=== PATIENT | female | born 1965 | race Caucasian/White ===

== ENCOUNTER 2023-08-22 08:00 | Emergency (ER) | payer BC, SELFPAY ==
[2023-08-22 08:21] VITALS: BP 142/91; PULSE 89; RESP 16; TEMP 36.5; O2SAT 100
[2023-08-22 08:23] VITALS: BP 142/91; PULSE 89; RESP 16; TEMP 36.5; O2SAT 100
--- NOTE | 2023-08-22 08:37 | ED.LOWEXIN ---
HPI - Extremity Injury (Lower) General Chief Complaint: Extremity Injury, Lower Stated Complaint: lt knee injury/work related Time Seen by Provider: 08/22/23 08:30 Source: patient and RN notes reviewed Mode of arrival: ambulatory Limitations: no limitations History of Present Illness HPI Narrative: 68-year-old female presents she reports an old injury many years ago but she has not had much issues with. Reports about a month ago was walking up stairs when she had a pop in her knee that caused her to fall to the ground, she reports she iced it and rested and it got better. She reports same thing happened a few days ago she pain, popping sensation, feeling of instability. Using ibuprofen, Thomas oil, copper sleeve without much relief. MD complaint: knee injury Related Data Home Medications Medication Instructions Recorded Confirmed baclofen 5 mg tablet 5 mg PO DAILY 08/22/23 08/22/23 bupropion HCl 100 mg tablet 100 mg PO BID 08/22/23 08/22/23 estradiol 08/22/23 hydroxychloroquine 200 mg tablet 200 mg PO BID 08/22/23 08/22/23 (Plaquenil) Allergies Allergy/AdvReac Type Severity Reaction Status Date / Time Sulfa (Sulfonamide Allergy Hives Verified 08/22/23 08:21 Antibiotics) Review of Systems Review of Systems: CONSTITUTIONAL: Denies malaise, chills, sweats, or fever. SKIN: Denies rash or itching, open skin, laceration, abrasion, redness, warmth MUSCULOSKELETAL: Reports left knee pain, swelling, popping NEUROLOGIC: Denies numbness, weakness All systems reviewed & are unremarkable except as noted in HPI and below PMFSH Comments At time of signature, agree with nursing past medical, surgical, social and family history. There is no relevant family history pertinent to the presenting complaint Exam Narrative: GENERAL: Well-appearing, well-nourished, and in no acute distress. HEAD: Normocephalic, atraumatic. EYES: PERRLA, conjunctivae clear NECK: Supple. CHEST: Speaks in full sentences. No respiratory distress. HEART: Regular rate and rhythm. Normal and equal peripheral pulses. EXTREMITIES: Left knee has normal sensation, limited range of motion. Mild anterior edema, no erythema, warmth, ecchymosis. Normal sensation with sensitivity to light touch and pain. And anterior tenderness. No open wounds, no skin tenting, no devitalized tissue or atrophy, no trophic changes, no obvious deformity, alignment normal, nearby joints and structures intact. Distal pulses palpable and equal bilaterally, skin warm, dry, pink. Lever test negative. Capillary refill less than 3 seconds. SKIN: Warm, dry, no rash. NEURO: Alert and oriented x3. PSYCH: Normal mood and affect Course Course Emergency Course: Patient is aware of diagnosis, understands and agrees to treatment plan. Anticipatory guidance given. Patient agrees to follow-up as directed and is aware of reasons to seek care at the emergency department. Portions of this record may have been created with voice recognition software Level of Care: Express Care Visit Vital Signs Vital signs: Vital Signs Temperature 97.7 F 08/22/23 08:21 Pulse Rate 89 08/22/23 08:21 Respiratory Rate 16 08/22/23 08:21 Blood Pressure 142/91 H 08/22/23 08:21 Pulse Oximetry 100 08/22/23 08:21 Oxygen Delivery Room Air 08/22/23 08:21 Temperature 97.7 F 08/22/23 08:23 Pulse Rate 89 08/22/23 08:23 Respiratory Rate 16 08/22/23 08:23 Blood Pressure 142/91 H 08/22/23 08:23 Pulse Oximetry 100 08/22/23 08:23 Oxygen Delivery Room Air 08/22/23 08:23 Reviewed. MDM - Extremity Injury (Lower) MDM Narrative Medical decision making narrative: Patients injury and pain is consistent with musculoskeletal etiology. No signs of neurological or vascular compromise on exam. Compartments and tissues are soft without signs of compartment syndrome. Pain is felt appropriate for further evaluation on an outpatient basis. Critical Care Time Critical Care Ti
== END 2023-08-22 08:43 | disposition home or self-care (01) ==
PROVIDERS: Emergency Provider Nurse Practitioner
DX: M25.562 Pain in left knee (principal)
CPT/HCPCS: 99202; G0463

== ENCOUNTER 2023-09-10 08:25 | Emergency (ER) | payer BC, SELFPAY ==
[2023-09-10 08:37] VITALS: BP 142/91; PULSE 71; RESP 18; TEMP 36.1; O2SAT 100
--- NOTE | 2023-09-10 08:37 | ED.FEMALEGU ---
HPI - Female Genitourinary General Chief complaint: Urogenital-Female Stated complaint: uti symptoms Time Seen by Provider: 09/10/23 08:37 Source: patient Mode of arrival: ambulatory Limitations: no limitations History of Present Illness HPI Narrative: 58 yo F presents with c/o urinary frequency, bladder pressure when urinating for the past 3 to 4 wks. hx of hysterectomy and bladder sling. Concerned bladder may be dropping again . Reports new partner and recently started having intercourse again. Complaining of pain and full feeling with intercourse. Does not have a gynocologist and states inbetween PCP right now. Came to [facility] today to rule out UTI. Bowel movements. Denies nausea. All systems reviewed and negative except as noted above. Related Data Home Medications Medication Instructions Recorded Confirmed estradiol 08/22/23 08/23/23 hydroxychloroquine 200 mg tablet 200 mg PO BID 08/22/23 08/23/23 (Plaquenil) baclofen 5 mg tablet 10 mg PO DAILY 09/03/23 bupropion HCl 300 mg 24 hr tablet, 300 mg PO QAM 09/03/23 extended release (Wellbutrin XL) Allergies Allergy/AdvReac Type Severity Reaction Status Date / Time Sulfa (Sulfonamide Allergy Hives Verified 09/10/23 08:41 Antibiotics) Review of Systems Review of Systems: CONSTITUTIONAL: Denies fever, chills, or sweats. EYES: Denies visual changes, redness, or discharge. ENT: Denies rhinorrhea, congestion, sore throat, or otalgia. CARDIOVASCULAR: Denies chest pain, palpitations, or edema. RESPIRATORY: Denies cough or dyspnea. GASTROINTESTINAL: Denies abdominal pain, nausea, vomiting, or diarrhea. GENITOURINARY: Reports frequency, bladder pressure with urination. Denies hematuria. reports painful intercourse. SKIN: Denies rash or itching. MUSCULOSKELETAL: Denies back pain, joint pain, or myalgia. NEUROLOGIC: Denies headache, numbness, or weakness. PSYCHIATRIC: Denies anxiety or depression. All other systems reviewed are negative, except as documented in HPI. [facility] Past Medical History Medical History (Updated 09/10/23 @ 09:02 by Chaparrita Byrnes NP) Lupus (systemic lupus erythematosus) Surgical History Surgical History (Updated 09/03/23 @ 08:50 by Agata Garcia CMA) H/O: hysterectomy Hx of arthroscopy of left knee ~2013 Family History Family History (Updated 09/03/23 @ 08:50 by Agata Garcia CMA) Unknown Arthritis Social History Social History (Updated 09/03/23 @ 08:51 by Agata Garcia CMA) Social History: caffeine use Smoking status: Never smoker Alcohol intake: never Substance use type: does not use Living arrangements: with family Occupation/Education: occupation 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 There is no relevant family history pertinent to the presenting complaint. Exam Narrative: GENERAL: This is a well-nourished, well-developed patient, in no apparent distress. HEAD: normocephalic, atraumatic. EYES: PERRL. Sclera clear/white. Vision is grossly intact. EARS: External ears normal NOSE: External nose normal NECK: Neck supple, non-tender without lymphadenopathy, masses or thyromegaly. CARDIOVASCULAR: Regular rate and rhythm without murmurs, gallops, or rubs. RESPIRATORY: Clear to auscultation. Breath sounds equal bilaterally. No wheezes, rales, or rhonchi. GASTROINTESTINAL: Abdomen soft, non-tender, nondistended. Bowel sounds are active. No hepato-splenomegaly, or palpable masses. No guarding. SKIN: warm, Dry, intact with no suspicious lesions or rash, good texture and turgor. NEURO: awake, alert, and oriented to person, place and time. There were no obvious focal neurologic abnormalities. EXTREMITIES: No joint tenderness, effusion, or edema noted. GENITOURINARY: pelvic exam
== END 2023-09-10 09:08 | disposition home or self-care (01) ==
PROVIDERS: Emergency Provider Nurse Practitioner Family
DX: R35.0 Frequency of micturition (principal); N94.10 Unspecified dyspareunia; Z76.0 Encounter for issue of repeat prescription; M32.9 Systemic lupus erythematosus, unspecified
CPT/HCPCS: 81003; 99213; G0463

== ENCOUNTER 2023-09-10 09:24 | Emergency (ER) | payer BC, SELFPAY ==
--- NOTE | ~2023-09-10 | CT_ITS ---
EXAMINATION: CT abdomen pelvis w con DATE: 09/10/2023 11:08 INDICATION: Suprapubic tenderness TECHNIQUE: Computed tomography (CT) of the abdomen and pelvis was performed with 100 cc Omnipaque 350 intravenous contrast. The dose-length product was 843.68 mGy-cm. Automated exposure control and iter ative reconstruction technique were employed. COMPARISON: None. FINDINGS: Lung bases are unremarkable. Heart size normal. No significant pleural or pericardial effus ion. There is a duodenal diverticulum. Colonic diverticulosis without evidence for diverticulitis. Fa tty infiltration of the liver. Gallbladder is present. The spleen, pancreas, adrenal glands and kidne ys are unremarkable. No significant vascular abnormality. No lymphadenopathy. No free air or free flu id. No evidence for hernia. No abnormal pelvic masses or fluid collections. No focal lytic or blastic lesions. Mild lumbar spondylosis. There is evidence of pelvic relaxation. IMPRESSION: 1. No acute abdominal abnormality. 2: Pelvic relaxation. Reviewed, dictated and finalized at location B.
[2023-09-10 09:42] VITALS: BP 131/99; PULSE 71; RESP 16; TEMP 36.7
--- NOTE | 2023-09-10 09:49 | ED.FEMALEGU ---
HPI - Female Genitourinary General Chief complaint: Urogenital-Female Stated complaint: bladder pain Time Seen by Provider: 09/10/23 09:39 Source: patient Mode of arrival: ambulatory Limitations: no limitations History of Present Illness HPI Narrative: This is a 58-year-old female with PMH of SLE, DJD who presents to the ED with chief complaint of bladder pain for the past couple of weeks. Reports that she 1st noticed this after she had sexual intercourse for the first time in a long time. she reports pain to the suprapubic area that seems to be the worst after intercourse and with a full bladder. reports some episodes of urge incontinence but this is not abnormal for her. States that she went to urgent care this morning and had a negative UA so she was sent here for further evaluation. Reports surgical history hysterectomy many years ago. She also reports she had a bladder sling placed around that time. Denies dysuria, urinary frequency, vaginal bleeding, hematuria, vaginal pain, rash, flank pain, back pain, fevers, chills. Related Data Home Medications Medication Instructions Recorded Confirmed estradiol 08/22/23 08/23/23 hydroxychloroquine 200 mg tablet 200 mg PO BID 08/22/23 08/23/23 (Plaquenil) baclofen 5 mg tablet 10 mg PO DAILY 09/03/23 bupropion HCl 300 mg 24 hr tablet, 300 mg PO QAM 09/03/23 extended release (Wellbutrin XL) Allergies Allergy/AdvReac Type Severity Reaction Status Date / Time Sulfa (Sulfonamide Allergy Hives Verified 09/10/23 08:41 Antibiotics) Review of Systems Review of Systems: All systems as dictated in [facility] Past Medical History Medical History (Updated 09/10/23 @ 12:07 by Raghav Gallo PA-C) Lupus (systemic lupus erythematosus) Surgical History Surgical History (Updated 09/03/23 @ 08:50 by Agata Garcia CMA) H/O: hysterectomy Hx of arthroscopy of left knee ~2013 Family History Family History (Updated 09/03/23 @ 08:50 by Agata Garcia CMA) Unknown Arthritis Social History Social History (Updated 09/03/23 @ 08:51 by Agata Garcia CMA) Social History: caffeine use Smoking status: Never smoker Alcohol intake: never Substance use type: does not use Living arrangements: with family Occupation/Education: occupation 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 HEAD: Normocephalic, atraumatic. EYES: PERRLA and EOMI. ENT: Nares clear, no rhinorrhea or epistaxis. Mucous membranes moist. Oropharynx without tonsillar hypertrophy exudate or other lesions. NECK: Supple. No adenopathy or masses. CHEST: No respiratory distress. Clear to auscultation. No wheezes rales or rhonchi HEART: Regular rate and rhythm. No murmur heard. Normal peripheral pulses. ABDOMEN: Moderately tender suprapubic region. Otherwise nontender. Soft, nondistended, normal active bowel sounds. Negative flank tenderness bilaterally MSK: Normal range of motion. No edema. SKIN: Warm, dry, no rash. NEURO: Alert and oriented x3. No focal deficits. PSYCH: Normal mood and affect. Course Vital Signs Vital signs: Vital Signs Temperature 98.0 F 09/10/23 09:42 Pulse Rate 71 09/10/23 09:42 Respiratory Rate 16 09/10/23 09:42 Blood Pressure 131/99 H 09/10/23 09:42 Oxygen Delivery Room Air 09/10/23 09:42 Temperature 98.3 F 09/10/23 12:00 Pulse Rate 76 09/10/23 12:00 Respiratory Rate 16 09/10/23 12:00 Blood Pressure 138/74 09/10/23 12:00 Pulse Oximetry 98 09/10/23 12:00 Oxygen Delivery Room Air 09/10/23 09:42 MDM - Female Genitourinary MDM Narrative Medical decision making narrative: This is a 58-year-old female who presents to the ED with chief complaint of suprapubic pain. Vitals are normal. Exam shows suprapubic te
[2023-09-10 09:57] LABS: Basophils Absolute Auto 0.1 K/mm3 (0.0-0.1); Basophils Percent Auto 1.3 % (0.2-1.2); Eosinophils Absolute Auto 0.4 K/mm3 (0-0.3); Eosinophils Percent Auto 7.2 % (0-4.4); Hemoglobin 13.8 g/dL (12.0-15.0); Immature Granulocyte Absolute 0.03 K/mm3 (0.00-0.031); Immature Granulocyte Percent A 0.5 % (0-0.5); Lymphocytes Absolute Auto 1.37 K/mm3 (0.9-3.2); Lymphocytes Percent Auto 24.5 % (18.3-44.2); Mean Corpuscular HGB Conc 32.9 g/dl (32-36); Mean Corpuscular Hemoglobin 29.8 pg (26-34); Mean Corpuscular Volume 90.7 fl (80-100); Mean Platelet Volume 9.6 fl (7.4-10.4); Monocytes Absolute Auto 0.3 K/mm3 (0.1-0.6); Monocytes Percent Auto 6.1 % (2.6-8.5); Neutrophils Absolute Auto 3.4 K/mm3 (1.3-6.7); Neutrophils Percent Auto 60.4 % (45.5-73.1); Platelet Count Result 235 k/mm3 (150-375); Red Blood Count 4.63 M/mm3 (4.2-5.4); Red Cell Distribution Width 13.3 % (11.5-14.5); White Blood Count 5.6 K/mm3 (4.5-10.0)
[2023-09-10 10:07] LABS: Alanine Aminotransferase 20 U/L (6-35); Albumin Level 4.7 g/dL (3.5-5.1); Alkaline Phosphatase 102 U/L (38-126); Anion Gap 5 mmol/L (8-16); Aspartate Amino Transferase 24 U/L (14-36); Blood Urea Nitrogen 11 mg/dL (7-17); Calcium 9.7 mg/dL (8.4-10.2); Carbon Dioxide 28 mmol/L (22-30); Chloride 106 mmol/L (98-107); Estimated CRCL calculation 76 ml/min; Estimated Glomerular Filt Rate > 60; Glucose 93 mg/dL (65-110); Potassium 3.9 mmol/L (3.4-5.0); Sodium 139 mmol/L (137-145)
[2023-09-10 10:31] VITALS: BP 143/98; PULSE 72; RESP 16; TEMP 36.8; O2SAT 100
[2023-09-10 11:08] VITALS: BP 140/88; PULSE 74; RESP 16; O2SAT 99
[2023-09-10 12:00] VITALS: BP 138/74; PULSE 76; RESP 16; TEMP 36.8; O2SAT 98
[2023-09-10 12:02] LABS: Add Urine Microscopic? NO; Appearance Urine Clear (Clear); Bilirubin Urine Negative (Negative); Blood Urine Negative (Negative); Color Urine Yellow (Yellow); Glucose Urine UA Negative (Negative); Ketones Urine Negative (Negative); Leukocyte Esterase Ur Negative LEU/UL (Negative); Nitrate Urine Negative (Negative); Protein Urine Negative (Negative); Specific Grav Ur <= 1.005 (1.001-1.035); Urobilinogen Urine 0.2 mg/dL (<2.0); pH Urine 6.5 (5.0-9.0)
== END 2023-09-10 12:20 | disposition home or self-care (01) ==
PROVIDERS: Emergency Provider Physician Assistant; Referring Provider Family Medicine
DX: R10.30 Lower abdominal pain, unspecified (principal); M32.9 Systemic lupus erythematosus, unspecified; Z90.710 Acquired absence of both cervix and uterus
CPT/HCPCS: 36415; 74177; 80053; 81003; 85025; 99284; Q9967

== ENCOUNTER 2024-01-25 13:36 | Emergency (ER) | payer SELFPAY ==
[2024-01-25] VITALS (9 sets, daily range): BP systolic 129–144; BP diastolic 88–93; PULSE 73–85; RESP 12–20; TEMP 36.4; O2SAT 94–100
--- NOTE | ~2024-01-25 | XR_ITS ---
Clinical Indication: Chest pain PA and lateral views of the chest: Comparison: None Findings: The lungs are clear, without evidence of focal consolidation or pleural effusion. Cardiome diastinal silhouette is within normal limits. Bones and soft tissues are unremarkable. Impression: Normal chest. Reviewed, dictated and finalized at location . Impression: Normal chest.
--- NOTE | 2024-01-25 13:38 | ECG_ITS ---
Test Date: 2024-01-25 13:47:34 Measurements Intervals [place] Rate: 83 P: 29 MA: 136 QRS: 17 QRSD: 81 T: 30 QT: 369 QTc: 434 Interpretive Statements SINUS RHYTHM NORMAL ELECTROCARDIOGRAM No previous ECG available for comparison Electronically Signed On 01-25-2024 15:08:16 CDT by Nabor Duarte M.D.
--- NOTE | 2024-01-25 14:11 | ED.CHESTPAIN ---
HPI - Chest Pain General Chief Complaint: Chest Pain Stated Complaint: chest pain Time Seen by Provider: 01/25/24 13:59 History of Present Illness HPI narrative: This is a 58-year-old female with a past medical history significant for lupus. Today patient presents to the ED with a chief complaint of chest pain she describes as crushing sensation. She states she has been down with intermittent crushing chest pain for last few weeks. It is associated with some difficulty in breathing she describes as a pain which takes deep breath. Pain is sporadic and comes and goes but she knows that has been worsening lately and worse with movement. Denies any trauma, recent illnesses or injuries. Denies any fever, chills, cough, back pain, abdominal pain, leg swelling or blood clot history. Was otherwise in her normal state of health. She knows that while she was at work today she had the chest heaviness in her chest as well as feeling like her heart was racing prompting her to seek evaluation. No history of coronary disease to her knowledge. No new medications or changes. She states she has tried taking Nexium at home with suspected GERD but has not had any improvement. Related Data Home Medications Medication Instructions Recorded Confirmed estradiol 08/22/23 08/23/23 hydroxychloroquine 200 mg tablet 200 mg PO BID 08/22/23 08/23/23 (Plaquenil) baclofen 5 mg tablet 10 mg PO DAILY 09/03/23 bupropion HCl 300 mg 24 hr tablet, 300 mg PO QAM 09/03/23 extended release (Wellbutrin XL) Allergies Allergy/AdvReac Type Severity Reaction Status Date / Time Sulfa (Sulfonamide Allergy Hives Verified 01/25/24 13:37 Antibiotics) Review of Systems Review of Systems: As reviewed 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 Mucous membranes moist. NECK: Supple. CHEST: [Clear to auscultation. No respiratory distress.] HEART: [Regular rate and rhythm]. No murmur heard. [Normal peripheral pulses.] ABDOMEN: [Soft, nondistended], [nontender], [No rigidity or guarding] EXTREMITIES: Normal range of motion. [No edema.] SKIN: Warm, dry, no rash. NEURO: [No focal deficits]. Alert and oriented [x3.] PSYCH: [Normal mood and affect.] Course Vital Signs Vital signs: Vital Signs Pulse Oximetry 98 01/25/24 13:38 Oxygen Delivery Room Air 01/25/24 13:38 Temperature 36.4 C 01/25/24 14:01 Pulse Rate 73 01/25/24 17:30 Respiratory Rate 16 01/25/24 17:30 Blood Pressure 140/89 01/25/24 14:46 Pulse Oximetry 100 01/25/24 17:30 Oxygen Delivery Room Air 01/25/24 14:01 MDM - Chest Pain MDM Narrative Medical decision making narrative: This is a 58-year-old female with a past medical history significant for SLE. She presents today with a chief complaint of chest pain she describes a crushing chest pressure sensation associated some pain while breathing. Denies any history of coronary disease, no history of hypertension, hype
[2024-01-25 14:16] LABS: Basophils Absolute Auto 0.1 K/mm3 (0.0-0.1); Basophils Percent Auto 0.8 % (0.2-1.2); Eosinophils Absolute Auto 0.2 K/mm3 (0-0.3); Eosinophils Percent Auto 3.8 % (0-4.4); Hematocrit 37.1 % (37.0-47.0); Hemoglobin 12.4 g/dL (12.0-15.0); Immature Granulocyte Absolute 0.02 K/mm3 (0.00-0.031); Immature Granulocyte Percent A 0.3 % (0-0.5); Lymphocytes Absolute Auto 1.54 K/mm3 (0.9-3.2); Lymphocytes Percent Auto 24.7 % (18.3-44.2); Mean Corpuscular HGB Conc 33.4 g/dl (32-36); Mean Corpuscular Hemoglobin 30.2 pg (26-34); Mean Corpuscular Volume 90.5 fl (80-100); Mean Platelet Volume 9.5 fl (7.4-10.4); Monocytes Absolute Auto 0.4 K/mm3 (0.1-0.6); Monocytes Percent Auto 6.6 % (2.6-8.5); Neutrophils Percent Auto 63.8 % (45.5-73.1); Platelet Count Result 220 k/mm3 (150-375); Red Cell Distribution Width 12.8 % (11.5-14.5); White Blood Count 6.2 K/mm3 (4.5-10.0)
[2024-01-25 14:33] LABS: Alanine Aminotransferase 20 U/L (6-35); Albumin Level 4.2 g/dL (3.5-5.1); Alkaline Phosphatase 90 U/L (38-126); Anion Gap 11 mmol/L (4-12); Aspartate Amino Transferase 25 U/L (14-36); Bilirubin,Total 0.8 mg/dL (0.2-1.3); Blood Urea Nitrogen 15 mg/dL (7-17); Calcium 9.1 mg/dL (8.4-10.2); Carbon Dioxide 22 mmol/L (22-30); Chloride 106 mmol/L (98-107); Estimated CRCL calculation 68 ml/min; Estimated Glomerular Filt Rate > 60; Glucose 92 mg/dL (65-110); Lipase 111 U/L (23-300); Potassium 3.5 mmol/L (3.4-5.0); Sodium 139 mmol/L (137-145)
[2024-01-25 14:34] LABS: INR 0.9; Prothrombin Time 12.8 Seconds (11.1-14.7)
[2024-01-25 14:35] LABS: Partial Thromboplastin Time 26.8 Seconds (22.3-36.8)
[2024-01-25 14:41] LABS: Troponin I < 0.012 ng/mL (0.000-0.034)
[2024-01-25 14:42] LABS: D Dimer 0.37 ug/mL (<0.48)
[2024-01-25 17:25] LABS: Troponin I < 0.012 ng/mL (0.000-0.034)
== END 2024-01-25 18:00 | disposition home or self-care (01) ==
PROVIDERS: Emergency Provider Student in an Organized Health Care Education/Training Program
DX: R07.89 Other chest pain (principal); M32.9 Systemic lupus erythematosus, unspecified; Z79.899 Other long term (current) drug therapy; Z90.710 Acquired absence of both cervix and uterus
CPT/HCPCS: 36415; 71046; 80053; 83690; 84484; 85025; 85380; 85610; 85730; 93005; 99284